=== PATIENT | female | born 1950 | race Caucasian/White ===

== ENCOUNTER 2018-12-19 05:09 | Observation (INO) | payer MEDICARE ==
[2018-12-19] MEDS ORDERED: Ondansetron PF 4 MG/2 ML Vial IVP PRN (09:10)
[2018-12-19] MEDS ORDERED: Lidocaine 5% Patch TD SCH (09:15)
[2018-12-19] MEDS ORDERED: Pantoprazole 40 MG VIAL IVP SCH (09:45)
[2018-12-19] MEDS ORDERED: Lactated Ringer's 1,000 ML IV SCH ×2 (09:45→10:00)
--- NOTE | 2018-12-19 10:00 | HP ---
PRIMARY CARE PHYSICIAN: Antionette De Jesus DO CHIEF COMPLAINT: Abdominal pain, nausea, vomiting, and diarrhea. HISTORY OF PRESENT ILLNESS: A 68-year-old female transferred from [facility] for further evaluation and treatment of possible small bowel obstruction. The patient reportedly developed acute abdominal pain associated with distention, nausea, vomiting, and frequent loose stool and chills about 3 to 4 hours after a meal of salsa and chips. The patient reportedly vomited several times since onset of symptoms around 8:00 p.m. on December 18. She has had about least 5 emesis as well as 4 to 5 loose stools. Last emesis was last night at [facility] before placement of NG tube. Last bowel motion also was last night. There was no associated melena, hematemesis, hematochezia, hematuria, dysuria, chest pain, shortness of breath, or headache. The patient reported few coffee-ground emesis, but mostly was greenish bile emesis. She also denied fever, but admitted to chills, which has subsided at this time. At this most intensity, abdominal pain was rated at 7/10, but currently it is 0/10. She denied shortness of breath or leg swelling. The patient has chronic back pain, which has gotten worse due to lying down on the bed. At [facility], the patient was treated with analgesic and NG tube placement as well as antiemetic. She also has received IV fluids. She reports feeling better. PAST MEDICAL HISTORY: 1. Hypertension. 2. CKD, stage 3. 3. Hypothyroidism. 4. Degenerative joint disease. 5. Chronic back pain. PAST SURGICAL HISTORY: 1. Hysterectomy. 2. Cholecystectomy. 3. Right knee replacement. FAMILY HISTORY: Significant for coronary artery disease in father as well as congestive heart failure and CVA in mother. SOCIAL HISTORY: The patient lives with spouse. The patient is a never smoker. Drinks alcohol sparingly. Denied recreational drug use. ALLERGIES: TRAMADOL AND LATEX WELL NATURAL RUBBER. HOME MEDICATIONS: 1. Levothyroxine 50 mcg p.o. daily. 2. Atenolol 25 mg p.o. daily. 3. Triamterene/hydrochlorothiazide 1 tablet daily. 4. Nitza 1 tablet daily. 5. Centrum 1 tablet daily. REVIEW OF SYSTEMS: Twelve-point review of system performed was negative other than pertinent positives and negatives included in the History of Present Illness. PHYSICAL EXAMINATION: VITAL SIGNS: Temperature 100.4, pulse 99, respiratory rate 18, SpO2 of 95% on room air, and blood pressure 129/88. GENERAL: Female, in no obvious distress. Afebrile. Anicteric. Acyanotic. HEENT: Normocephalic, atraumatic. Oral mucosa is mildly dry. NG tube is in place, connected to low suction. NECK: Supple. Nontender with good range of motion. No JVD appreciated. CARDIOVASCULAR: Regular rhythm and rate with normal heart sounds 1 and 2. Soft systolic murmur noted. RESPIRATORY: Good air entry bilaterally with no crackle or rhonchi or use of accessory muscles. GASTROINTESTINAL: Abdomen is full, soft. Mild diffuse tenderness noted. Bowel sound is hypoactive. EXTREMITIES: Grossly normal looking, atraumatic with no edema or erythema. CENTRAL NERVOUS SYSTEM: Conscious, alert, oriented x3 with appropriate mental status. DIAGNOSTIC DATA: CBC showed WBC count of 9.8, hemoglobin of 15.8, MCV of 91.8, and platelet of 177. CMP showed sodium 141, potassium 3.7, chloride 102, CO2 of 25, BUN 21, creatinine 1.23, glucose 172, calcium 9.4, total bilirubin 1.0, AST 27, ALT 24, alkaline phosphatase 81, total protein 6.9, and albumin 4.2. Lipase is 17. Urinalysis showed yellow clear urine with pH of 5.0, specific gravity of 1.020. Negative protein, glucose, ketone, blood, nitrite, leukocyte esterase, and bilirubin. CT scan of the abdomen and pelvis with contrast showed distended proximal and mid small loops containing fluid and measuring up to 3 cm in diameter. They compressed need and distal loops with lower pelvic level gradual transition. Features were suggestive of mid partial small bowel obstruction versus ileus. The liver, kidneys, pancreas, and spleen were unremarkable. Gallbladder has been removed. ASSESSMENT: 1. Acute gastroenteritis. 2. Acute ileus presumed to be due to acute gastroenteritis. 3. Abdominal pain/distention. 4. Acute exacerbation of chronic back pain. 5. Hypothyroidism, on replacement therapy. 6. Hypertension, on treatment. 7. Chronic kidney disease, stage 3: Stable. PLAN: 1. Start IV fluid therapy. 2. Continue n.p.o. and bowel rest as well as low intermittent suction. 3. Monitor electrolytes and replete as needed. 4. Antiemetic as needed. 5. We will get stool cultures if frequent loose stool continues. 6. Spontaneous resolution is anticipated with bowel rest. 7. We will consider starting clear liquid later in the day if NG tube drainage remained low. 8. Lidocaine patch for pain control. 9. We will restart antihypertensives. We will start atenolol and levothyroxine while holding diuretic at this time. 10. DVT prophylaxis with Lovenox. 11. General Surgery consult has been requested. 12. Code status, full code. The patient's spouse is the surrogate decision maker. Further treatment to follow depending on hospital course. Job ID: [id number]
[2018-12-19 10:15] VITALS: BMI 35.7
--- NOTE | 2018-12-19 10:39 | RAD ---
Exam: Single view of the chest and 2 views of the abdomen HISTORY: NG tube placement COMPARISON: None FINDINGS: 2 views of the abdomen and a single view the chest shows a nonspecific, nonobstructive farnaz l gas pattern. An NG tube is seen with its tip in the stomach. The side-port is near the gastroesophageal junction. Air is seen to the level of the rectum. No free air or air-fluid levels ar e seen and upright examination. Cholecystectomy clips are seen. The cardiomediastinal silhouette is normal in size. There is no evidence of consolidation, mass, or p leural effusion. IMPRESSION: Nonobstructive bowel gas pattern
[2018-12-19] MEDS: Lactated Ringer's 1,000 ML IV SCH ×2 (11:03→16:33)
--- NOTE | 2018-12-19 11:51 | CON ---
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 This pain was associated with nausea, vomiting. Her last bowel movement was last night, more diarrhea, loose stool in caliber. She has not passed flatus since. She presented to [place] emergency room late last night and CAT scan of the abdomen and pelvis revealed changes suggestive of bowel obstruction. Apparently, an NG tube was placed and then repositioned and she was transferred to our emergency room, then admitted to the hospitalist service. NG tube placement this morning on repeat x-rays ordered revealed the tip to be in the upper stomach. It was advanced another 15 cm. The patient feels much better. The abdominal pain she experienced earlier is resolved. She has never had a colonoscopy. She has never had any past history of bowel obstruction. She has had a laparoscopic cholecystectomy and open hysterectomy, bilateral salpingo-oophorectomy for endometriosis in the 70s. ALLERGIES: LATEX, RUBBER, TRAMADOL. HOME MEDICATION LIST: Not reconciled, but per other records 1. Levothyroxine 50 mcg a day. 2. Atenolol 25 a day. 3. Triamterene hydrochlorothiazide daily. 4. Nitza daily. 5. Centrum daily. SOCIAL HISTORY: Patient is . She is a retired nurse. Alcohol, rare. Tobacco, none. PAST SURGICAL HISTORY: Laparoscopic cholecystectomy, hysterectomy, right knee replacement. PAST MEDICAL HISTORY: Hypertension, chronic kidney disease, followed by Dr. De Jesus, never has seen a substation mechanic, hypothyroidism, degenerative joint disease with NSAID use frequently in the past, chronic back pain. REVIEW OF SYSTEMS: Noncontributory. PHYSICAL EXAMINATION: VITAL SIGNS: Height 5 feet 3, 201 pounds, 35 BMI. Blood pressure 129/88, pulse 99, respiratory rate 18, 100.4 degrees. HEAD, EARS, EYES, NOSE AND THROAT: Unremarkable. LUNGS: Clear to auscultation. CARDIAC: Regular rate and rhythm without murmur or gallop. ABDOMEN: Soft and nontender. No masses. No hernias evident. EXTREMITIES: Unremarkable. LABORATORY DATA: White count 9 and hemoglobin 15. BUN 21, creatinine 1.32, GFR 44, glucose 172, sodium 141, potassium 3.7. Liver function test normal. ASSESSMENT AND PLAN: 1. Radiological evidence of a bowel obstruction. Currently, she is clinically much better, although she had a small bowel movement loose last night, she has not passed flatus. Abdominal x-rays, imaging, repeat this morning are nonspecific. Would recommend small bowel follow-through. They have ordered that. Based on the results of this, we might be able to remove her NG tube later today and advance her diet. We will await these radiological findings. 2. Hypertension. 3. Chronic kidney disease, probably secondary to hypertension and NSAID use in the past. Job ID: [id number]
--- NOTE | 2018-12-19 13:27 | RAD ---
EXAM: Small bowel follow-through HISTORY: Small bowel obstruction COMPARISON: CT abdomen/pelvis 12/19/2018 FINDINGS: A Gastrografin small bowel follow-through was performed. An NG tube is seen in the stomach. The small bowel loops are normal in caliber without distention. Contrast passes through the small bowel loops to the colon by 30 minutes. IMPRESSION: Normal exam
[2018-12-19] MEDS ORDERED: Ondansetron ODT 8 MG TAB SL PRN (13:58)
[2018-12-19] MEDS ORDERED: Ondansetron ODT 4 MG TAB PO PRN (13:58)
[2018-12-19] MEDS ORDERED: Ondansetron ODT 8 MG TAB PO PRN (13:58)
[2018-12-19] MEDS ORDERED: Ondansetron ORAL SOLN. 4 MG/5 ML UDCUP PO PRN ×2 (13:58)
--- NOTE | 2018-12-19 16:04 | PRG ---
DATE OF SERVICE: 12/19/2018 Melissa Jackson is doing well today. She had a small bowel follow-through Gastrografin administered through her NG tube with transit through the small bowel into the colon within 1 hour. She has had multiple bowel movements. Review of her plain x-rays reveals no small bowel dilatation. NG tube was placed to suction for about 30 minutes and did not have any significant output and has been removed. Her diet has been advanced as tolerated from full liquids to a regular diet. There is no evidence of a bowel obstruction. The patient can be discharged home from a surgical standpoint later this evening or tomorrow if she is tolerating her diet. She does have chronic kidney disease and her renal function on this admission is about the same as it has been on past admissions. At this point, I will see her in the hospital tomorrow if she is still here. I have asked her nurse to call me if the patient desires discharge home later this evening, in which case she could be discharged home with diet as tolerated and follow up erik Job ID: [id number]
[2018-12-19] MEDS ORDERED: Atenolol 25 MG TAB PO SCH (20:00)
[2018-12-19] MEDS: Lidocaine Patch Removal 1 EACH TOP SCH ×2 (20:02→20:04)
[2018-12-19 22:42] VITALS: BP 116/69; TEMP 98.9
[2018-12-20] MEDS ORDERED: Levothyroxine Sodium 50 MCG TAB PO SCH ×2 (06:00)
[2018-12-20] MEDS ORDERED: Lidocaine 5% Patch TD SCH (09:00)
[2018-12-20] MEDS ORDERED: Prevnar 13-Val Conj/PF 0.5 ML SYRINGE IM ONE (09:00)
[2018-12-20] MEDS ORDERED: Multivitamin W/ Minerals 1 TAB PO SCH (09:00)
[2018-12-20] MEDS ORDERED: FLU VACC TS2019-20(65YR UP)/PF 180 MCG/0.5 ML SYRINGE IM ONE (09:00)
[2018-12-20] MEDS ORDERED: Pantoprazole 40 MG VIAL IVP SCH (09:00)
[2018-12-20] MEDS ORDERED: Enoxaparin Sodium 40 MG/0.4 ML SYRINGE SC SCH (09:00)
[2018-12-20] MEDS ORDERED: Atenolol 25 MG TAB PO SCH ×2 (09:00)
--- NOTE | 2018-12-21 11:18 | DIS ---
DATE OF ADMISSION: 12/19/2018 DATE OF DISCHARGE: 12/19/2018 PRIMARY CARE PHYSICIAN: Antionette De Jesus DO. DISCHARGE DIAGNOSES: 1. Acute gastroenteritis. 2. Acute ileus. 3. Abdominal pain with distention. 4. Acute exacerbation of chronic back pain. 5. Hypothyroidism. 6. Hypertension. 7. Chronic kidney disease, stage 3. 8. Radiographic small bowel obstruction. CONSULTS: General Surgery. HOSPITAL COURSE: A 68-year-old female transferred from [facility] for further evaluation and treatment of possible small-bowel obstruction. The patient reportedly developed acute onset of nausea, vomiting, and diarrhea as well as abdominal pain and distention 3 to 4 hours after a meal of salsa. Evaluation at [facility] with CT scan was suggestive of small bowel obstruction, hence transferred to this hospital. NG tube decompression was commenced. Abdominal distention and pain improved with time. General Surgery consult was obtained and following evaluation he was of the view that the patient has ileus from acute gastroenteritis. Subsequent evaluation with small-bowel series was unremarkable. The patient was later started on diet which was well tolerated and was subsequently discharged home. Job ID: [id number]
== END 2018-12-19 21:30 | disposition home or self-care (01) ==
LOC: ERS 05:09 → SJJU 06:34
PROVIDERS: ADMIT Internal Medicine; ATTEND Internal Medicine
DX: K52.9 Noninfective gastroenteritis and colitis, unspecified (principal); I12.9 Hypertensive chronic kidney disease with stage 1 through stage 4 chronic kidney disease, or unspecified chronic kidney disease; N18.3 Chronic kidney disease, stage 3 (moderate); E03.9 Hypothyroidism, unspecified; G89.29 Other chronic pain; M54.9 Dorsalgia, unspecified; M19.90 Unspecified osteoarthritis, unspecified site; Z79.899 Other long term (current) drug therapy; Z88.5 Allergy status to narcotic agent; Z91.040 Latex allergy status; Z91.048 Other nonmedicinal substance allergy status
CPT/HCPCS: 74022; 74250; 96361; 96374; 96375; 99284; G0378 ×2; C9113; Q0162